=== PATIENT | male | born 1950 | race Caucasian/White ===

== ENCOUNTER 2016-12-08 14:21 | Emergency (ER) | payer MEDICARE ==
[~2016-12-08] VITALS: Ht 160 cm; Wt 64.0 kg
[2016-12-08] MEDS ORDERED: ACETAMINOPHEN ES 500 MG TABLET PO ONE (14:30)
[2016-12-08] MEDS ORDERED: MORPHINE SULFATE 2 MG/1 ML DISP.SYRIN IM ONE (14:30)
--- NOTE | 2016-12-08 14:33 | NUR ---
PT IS IN ROOM #2A. DR VIDAL EVALUATED THE PT.
[2016-12-08] MEDS ORDERED: MORPHINE SULFATE 4 MG/1 ML DISP.SYRIN ONE (14:42)
[2016-12-08] MEDS ORDERED: ACETAMINOPHEN ES 500 MG TABLET ONE (14:43)
[2016-12-08] MEDS ORDERED: MORPHINE SULFATE 4 MG/1 ML DISP.SYRIN IV ONE (14:45)
[2016-12-08] MEDS ORDERED: LIDOCAINE 1%-EPI 1:100,000 20 ML VIAL TP ONE (14:45)
[2016-12-08 14:58] LABS: BASOPHILS # (AUTO) 0.2 K/uL (0.0-0.2); BASOPHILS % (AUTO) 2.2 % (0.0-2.0); EOSINOPHILS # (AUTO) 0.4 K/uL (0.0-0.7); EOSINOPHILS % (AUTO) 3.4 % (0.0-7.0); HEMATOCRIT 42.5 % (40.0-50.0); HEMOGLOBIN 14.6 g/dL (14.0-18.0); LYMPHOCYTES # (AUTO) 1.8 K/uL (0.8-4.8); MEAN CORPUSCULAR HEMOGLOBIN 29.3 uug (27.0-31.0); MEAN CORPUSCULAR HGB CONC 34 % (32.0-37.0); MEAN CORPUSCULAR VOLUME 85.5 fL (82.0-92.0); MONOCYTES # (AUTO) 0.7 K/uL (0.1-1.30); MONOCYTES % (AUTO) 6.6 % (0.0-11.0); NEUTROPHILS # (AUTO) 7.7 K/uL (1.8-8.9); NEUTROPHILS % (AUTO) 70.8 % (38.5-71.5); PLATELET COUNT (AUTO) 293 K/uL (150-450); RED BLOOD CELL COUNT(AUTO) 4.97 MIL/uL (4.70-6.10); WHITE BLOOD COUNT (AUTO) 10.8 K/uL (4.0-11.2)
[2016-12-08 15:02] LABS: CALCIUM 9.3 mg/dL (8.5-10.1); CREATININE 1.6 mg/dL (0.6-1.3); POTASSIUM 4.2 mmol/L (3.5-5.1)
[2016-12-08 15:07] LABS: ALBUMIN 3.6 g/dL (3.4-5.0); BILIRUBIN,TOTAL 0.3 mg/dL (0.2-1.0); TOTAL PROTEIN, SERUM 8.4 g/dL (6.4-8.2)
[2016-12-08 15:08] LABS: URIC ACID 7.8 mg/dL (3.5-7.2)
[2016-12-08] MEDS ORDERED: methylPREDNISolone SOD SUCC 125 MG/2 ML VIAL IV ONE (16:15)
[2016-12-08] MEDS ORDERED: methylPREDNISolone SOD SUCC 125 MG/2 ML VIAL ONE (16:17)
--- NOTE | 2016-12-08 16:55 | NUR ---
Arsenio conway in [facility] - 12/08/16 at 1657 by KIN patient is transferring to [facility] pending accepting and bed
[2016-12-08 17:19] VITALS: BP 138/87
--- NOTE | 2016-12-08 17:19 | NUR ---
PT WAS D/C TO HOME. D/C INSTRUCTIONS GIVEN TO THE PT.
== END 2016-12-08 17:20 | disposition home or self-care (01) ==
LOC: ER 14:42
DX: M10.9 Gout, unspecified (principal); R79.1 Abnormal coagulation profile; E11.9 Type 2 diabetes mellitus without complications; I10 Essential (primary) hypertension
CPT/HCPCS: 36415; 73200; 84550; 84681; 85025; 85651; 85730; 86140; A4663; J2270; J2930; J3490

== ENCOUNTER 2018-12-06 14:08 | Emergency (ER) | payer OTHER, MEDICAID ==
[~2018-12-06] VITALS: Ht 160 cm; Wt 63.5 kg
[2018-12-06] MEDS ORDERED: TRIAMCINOLONE ACETONIDE 40 MG/1 ML VIAL ONE (14:25)
[2018-12-06] MEDS ORDERED: MISCELLANEOUS MED XX ONE (14:30)
--- NOTE | 2018-12-06 14:40 | NUR ---
ARNAUD WRAP APPLIED TO PT'S LT KNEE PER DR MARIAMA DAVID.
--- NOTE | 2018-12-06 18:13 | NUR ---
Patient discharged to home in stable conditon. Written and verbal after care instructions given. Patient verbalizes understanding of instructions.
[2018-12-06 18:14] VITALS: BP 148/77
== END 2018-12-06 18:14 | disposition home or self-care (01) ==
LOC: ER 14:08
DX: M25.462 Effusion, left knee (principal); M12.862 Other specific arthropathies, not elsewhere classified, left knee; I10 Essential (primary) hypertension; I25.10 Atherosclerotic heart disease of native coronary artery without angina pectoris; E11.9 Type 2 diabetes mellitus without complications
CPT/HCPCS: 20610; 36415; 83986; 87070; 87205; 89060; 99284; J3301; J3490 ×2; A4663